=== PATIENT | male | born 1965 | race African-American/Black ===

== ENCOUNTER → 2017-01-28 | Outpatient (CLI) | payer OTHER ==
[~2017-01-28] MED LIST: BACLOFEN; BACLOFEN 10MG T10 M1 PO; BACLOFEN 10MG T10 MG PO; CLONIDINE 2; CRANBERRY400 MG PO; ENDOCET 10-3251 EACH PO; GABLOFEN10000 MCG/ INTRATHECA; HYDROMORPHONE; INTRATHECAL MED; LASIX 40 MG TAB40 M1 GT; OXYCODONE-ACET1 EAC2 PO; OXYCONTIN10 M1 PO; PERCOCET 10-321 EACH; PERCOCET 7.5-51 EACH PO; TRAZODONE HCL50 MG PO
[2017-01-28 08:41] VITALS: BP 98/62
== END | disposition home or self-care (01) ==
LOC: PAIN 06:33
DX: G80.1 Spastic diplegic cerebral palsy (principal); G89.29 Other chronic pain; F11.20 Opioid dependence, uncomplicated; Z98.890 Other specified postprocedural states

== ENCOUNTER → 2017-08-15 | Outpatient (CLI) | payer OTHER ==
--- NOTE | ~2017-08-15 | HPC ---
[facility] [address] [place] [address] PAIN MANAGEMENT CONSULTATION Name: ROSALIE ADAM Room #: REG MARK GonzalezSandiEnedina.#: [id number] Admission: 08/15/17 Attend Phys: Braydon Reyes MD Discharge: Date of : 61 Report #: [id number] THIS REPORT FOR: //name// CC: [facility] physician/PCP Braydon Reyes DATE OF SERVICE: 08/15/2017 Followup visit for management of pain related to spinal cord injury and spasticity. The patient is in the pain clinic today for renewal of his oral medications. His intrathecal pump does not require refill at today's visit. We reviewed his current dosing intrathecal and also the systemic opioids that he has been taking now for many years as a supplement to his intrathecal pump. I originally saw him when he was sent to us by Dr. Carito Tran who was originally managing his intrathecal pump. We have not accelerated his medication one bit since 2009, but he has remained on some oxycodone orally under terms of written opioid agreement. Urine drug screens and recently buccal drug screens have been performed, appropriate for his current medicines. Today, we spent a good deal of time reviewing current strategies for management of intrathecal and oral opioids. I have discussed with him the CDC guidelines once again at great length. He is just within the upper limits of the dosing requirements of 90 morphine milligram equivalents. All other aspects of his required management are being met in the clinic. He denies any side effects and once again steadfastly reports that he is carefully monitoring his medication so that it does not leave his person. PQRS is reviewed. He is hypotensive today. He is able to make daily transfers at night from his chair to his bed, but needs an real estate legal assistant in the daytime. He is a fall risk. Pain intensity is a 5-6/10. BMI is less than 20. PHYSICAL EXAMINATION: He is pleasant, alert and oriented, without signs of overmedication. He is a bit today as noted. He has use of his upper extremities, but has generalized weakness there in all muscle groups. His technology consultant is diminished. He has weakness in biceps and triceps. He has minimal spasticity below the level of his injury. His pump is in the right lower quadrant of the abdomen. IMPRESSION: 1. Spinal cord injury with a C6-C7 quadriplegia. He has a partial injury with sensory preserved causing some pain in the areas below his spinal cord injury, painful areas include his lower extremities, legs and hips as well as his buttocks. 2. Management of intrathecal infusion pump. No requirement today for refill. 3. Management of high risk medication opioid doses within the CDC guideline. [address] [address] PAIN MANAGEMENT CONSULTATION Name: ROSALIE ADAM Room #: REG MARK Velasco#: [id number] Admission: 08/15/17 Attend Phys: Braydon Reyes MD Discharge: Date of : 61 Report #: [id number] RECOMMENDATIONS: I provided him with his oxycodone 10/325, #180, one tablet q.4 hours to two tablets q.8 hours as needed for management of spasticity related pain. A buccal drug screen was performed within the last year and we will continue to monitor him carefully in that regard. <ELECTRONICALLY SIGNED> By: Braydon Reyes MD 09/11/17 1640 [id number] 41 Braydon Reyes MD /nt
[2017-08-15 10:35] VITALS: BP 82/57
== END ==
LOC: PAIN 06:45
DX: S14.157 Other incomplete lesion at C7 level of cervical spinal cord (principal); S14.15 Other incomplete lesions of cervical spinal cord; G82.54 Quadriplegia, C5-C7 incomplete; F11.90 Opioid use, unspecified, uncomplicated; Z45.1 Encounter for adjustment and management of infusion pump; X58.XXXD Exposure to other specified factors, subsequent encounter

== ENCOUNTER → 2018-02-10 | Outpatient (CLI) | payer OTHER ==
--- NOTE | ~2018-02-10 | HPC ---
[facility] [place] [address] PAIN MANAGEMENT CONSULTATION Name: ROSALIE ADAM JR Room #: REG MARK Amber.#: [id number] Admission: 02/10/18 Attend Phys: Bryadon Reyes MD Discharge: Date of : 61 Report #: [id number] THIS REPORT FOR: //name// CC: [facility] physician/PCP Braydon Reyes DATE OF SERVICE: 02/10/2018 Followup visit for chronic intractable pain and spasticity with C6-C7 quadriplegia. The patient is a high-functioning quadriplegic. He is here today for refill of his intrathecal infusion pump and renewal of oral medication, which we provide him for chronic pain. He has an incomplete injury and has some sensation below the level of his cord injury. 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 He does miss some of the social interaction at work. He complains of persistent ongoing pain in addition to some spasticity in his lower extremities, which we have been able to manage effectively with a combination of medicines in his intrathecal pump. He was on higher dose oxycodone, which I have been tapering as we have discussed the opioid crisis in the CDC guidelines. We are trying to keep patients at the lowest effective dose. He made a transition from 60 mg of oxycodone daily to 50 fairly easily and does not request additional medication today. He scores his spasticity is adequately controlled and pain intensity is 7/10. Most of his pain is in his legs at times in his buttocks. He says that he can get some relief if he elevates his feet. Pain medication clearly helps when taken on a schedule throughout the day and allows him to do many activities that one would not anticipate of a quadriplegic such as driving a car. He has a caregiver who comes in 6 days a week. MEDICATIONS: Reviewed and reconciled. He is on an opioid agreement. His functional assessment tool scoring is 50/70 and is at low risk for addiction scoring 0 on the ORT. He has had buccal drug screens performed annually and a repeat was performed today. He reports that his pain intensity is a 5. He is able to make independent transfers, but of course is a fall risk with his quadriplegia. Denies arthritis pain. PHYSICAL EXAMINATION: Pleasant, alert and oriented, he is on his wheelchair. No wounds are noted. Partial use of his upper extremities at the level of C7. Some atrophy is noted in the hands. No movement noted in the legs. Pump is in the left lower quadrant, nontender. BMI is 25.1 by report. [facility] [address] [place] [address] PAIN MANAGEMENT CONSULTATION Name: ROSALIE ADAM Room #: REG CLTyra Velasco#: [id number] Admission: 02/10/18 Attend Phys: Braydon Reyes MD Discharge: Date of : 61 Report #: [id number] IMPRESSION: 1. Spasticity related to spinal cord injury at C6-C7. Incomplete quadriplegia. 2. Management of intrathecal infusion with refill. 3. Management of high risk medications under terms of an opioid agreement. 4. Oxycodone 10 mg tablets equates to 75 morphine milligram equivalents. DESCRIPTION OF PROCEDURE: Refill and reprogram intrathecal pump. Skin was prepped with ChloraPrep and anesthetized. A 22-gauge non-coring needle advanced in the pump. Old medication removed and discarded. Pump was refilled with a combination of hydromorphone, clonidine and baclofen. Reprogramming session was performed with no change. He will receive 580 mcg of baclofen, 4.3 mg of hydromorphone and 230 mcg of clonidine daily. He is 22 months on this current pump, his second one. His TUCKER is in 11/2019. Low reservoir alarm with the new refill is 07/03/2018, we will see him back in the clinic before then. I provided medications form with release dates for 4, 8 and 12 weeks that will get him through to his next pump refill. By: 1142 [id number] Braydon Reyes MD /sara
[2018-02-10 09:38] VITALS: BP 103/55
== END | disposition home or self-care (01) ==
LOC: PAIN 06:22
DX: Z45.1 Encounter for adjustment and management of infusion pump (principal); G89.29 Other chronic pain; G80.0 Spastic quadriplegic cerebral palsy; Z79.891 Long term (current) use of opiate analgesic

== ENCOUNTER → 2018-06-09 | Outpatient (CLI) | payer OTHER ==
[~2018-06-09] VITALS: Ht 175.3 cm; Wt 77.1 kg
--- NOTE | ~2018-06-09 | HPC ---
[facility] [address] [place] [address] PAIN MANAGEMENT CONSULTATION Name: ROSALIE ADAM Room #: REG MICKI Amber.#: [id number] Admission: 06/09/18 Attend Phys: Braydon Reyes MD Discharge: Date of : 61 Report #: [id number] THIS REPORT FOR: //name// CC: [facility] physician/PCP Braydon Reyes DATE OF SERVICE: 06/09/2018 Followup visit for management of intrathecal infusion pump and medication for chronic intractable pain. The patient has the intrathecal pump providing medication for intractable pain as well as spasticity related to spinal cord injury. Pump has been very effective. Over the course of the last 10 years or so, he has been able to work and has had physical therapy to maximize his function. He has done well. His pump includes baclofen, clonidine for neuropathic pain and hydromorphone to help with other multiple aches and pains from this incomplete spinal cord injury. He is here today for refill of his pump and is due for his medications. He continues to have pain that is related to his spasticity in his lower extremities and he complains of pain as well in his mid back and upper back. His spasticity has been controlled to a reasonable degree and we will not make adjustments in any of his medication today. His medications will be reviewed and reconciled. PQRS shows that he has no significant complaints of arthritis. He has gained some weight and his BMI is now 25.1. He is wheelchair bound and would be a fall risk of course without careful transfers. He is on no blood thinners, no history of hypertension, and has been on opioid therapy with a signed agreement for over 2 years. He is considered at low risk for addiction. PHYSICAL EXAMINATION: Today, he is pleasant, alert and oriented, his increased weight is notable. He is 5 feet 9 inches, weight 170 pounds. He has partial use of his upper extremities, particularly his right, which he controls his electric wheelchair. No movement, minimal spasticity in the lower extremities today. Pump is in the left lower abdomen, nontender. IMPRESSION: 1. Spinal cord injury C6-C7 with spasticity. Incomplete quadriplegia. 2. Management of high risk medications under terms of written opioid agreement, oxycodone 10/325 mg 5 tablets daily, maximal daily dose is 75 MME. We discussed the opioid crisis in [place]. We have discussed this relatively high level of MME. 3. Refill under protocol. [address] [address] PAIN MANAGEMENT CONSULTATION Name: ROSALIE [facility] [id number] Admission: 06/09/18 Attend Phys: Braydon Reyes MD Discharge: Date of : 61 Report #: [id number] PROCEDURE: Skin was prepped with ChloraPrep and anesthetized. A 22-gauge non-coring needle advanced into the intrathecal pump. Old medication removed and discarded. Pump was refilled with a combination of hydromorphone, clonidine, and baclofen. Reprogramming session was performed. There will be no change. Daily dose will receive 580 mcg of baclofen, 4.3 mg of hydromorphone, and 230 of clonidine. Low reservoir alarm is now about 17 months. We will talk about this over the course of next year. He will have to have the pump replaced before 11/2019. Next refill is scheduled for 10/16/2018. Released today prescriptions for his oral medications, oxycodone 10, #150 were provided for today, for 8-12 weeks to get him back to his next refill appointment. By: 1230 [id number] Braydon Reyes MD /nt
[2018-06-09 11:46] VITALS: BP 122/63
== END | disposition home or self-care (01) ==
LOC: PAIN 00:16
DX: Z45.1 Encounter for adjustment and management of infusion pump (principal); G80.0 Spastic quadriplegic cerebral palsy; G89.29 Other chronic pain; Z79.891 Long term (current) use of opiate analgesic

== ENCOUNTER → 2018-09-22 | Outpatient (CLI) | payer OTHER ==
--- NOTE | ~2018-09-22 | HPC ---
[facility] [address] [place] [address] PAIN MANAGEMENT CONSULTATION Name: ROSALIE ADAM JR Room #: REG MARK Amber.#: [id number] Admission: 09/22/18 ������������������ Attend Phys: Braydon Reyes MD Discharge: ������������������ Date of : 61 Report #: [id number] THIS REPORT FOR: //name// CC: [facility] physician/PCP Braydon Reyes DATE OF SERVICE: 09/22/2018 Followup visit for chronic pain and spasticity. Management of intrathecal infusion pump and management of oral medication. The patient returns to pain clinic today for his medication. He has chronic pain related to ongoing spasticity that occurs in his back and his legs. We have managed him for many years with opioid medications under terms of written opioid agreement. We have been trying to taper his medication. I am concerned about his higher dose use of systemic opioids from we have the intrathecal infusion pump. I have also been quite dayana with him about the opioid crisis and our desire to keep all patients at the lowest effective dose as we aggressively continue to try and taper all medications on patients to see where their baseline may be. His pump including baclofen, clonidine and hydromorphone. I have told him that we will increase the hydromorphone in his intrathecal pump at next refill and in so doing, we will try and reduce his MME of oral oxycodone from 75 to 60. He is agreeable to this strategy. PQRS: He has no significant arthritic complaints. He is paralyzed, in a wheelchair, with a BMI of 25.1. He is on no blood thinners. No history of hypertension. His opioid risk tool has been completed and is on the chart. He is considered at low risk for addiction. IMPRESSION AND PLAN: 1. Spinal cord injury with spasticity, C6-C7, incomplete quadriplegia. 2. Management of high-risk medications for chronic intractable pain. Current daily dose is oxycodone 10/325 five tablets daily for an MME of 75. 3. Return to the pain clinic for refill in 1 month. ��������������������������������������������� ���������������������������������������� By: ��������������������������������������������� 1755 1325 Braydon Reyes MD /nt
[2018-09-22 09:18] VITALS: BP 97/61
--- NOTE | 2018-09-22 09:29 | NUR ---
Pain Clinic Assessment: 1. History of Osteoarthritis: Not Applicable History of Rheumatoid Arthritis: Not Applicable 2. Height: ft. in. cm. Weight: lb. oz. kg. Patient's BMI: 3. Vital Signs: BP: 97/61 Pulse: 68 Resp: 14 Temp: 02 Sat: 100 ECG Mon: 4. Pain Intensity: 8 5. Fall Risk: Dizziness: N Needs help standing or walking: Y Fallen in the last 3 months: N Fall risk comments: 6. Patient on Blood Thinner: None 7. History of Hypertension: N 8. Opioid Therapy greater than 6 weeks: Y Opiate Contract Signed: 01/19/16 9. Risk Assessment Tool Provided: O/LOW 10. Functional Assessment Tool: 54/70 11. Recreational Drug Use: Never Drug Type: Tobacco Use: Never Smoker Tobacco Type: Amount or Packs/day: How Many Years: Alcohol Use: No Frequency: Quant:
== END ==
LOC: PAIN 06:47
DX: G89.4 Chronic pain syndrome (principal); M54.5 Low back pain; Z79.899 Other long term (current) drug therapy

== ENCOUNTER → 2018-10-14 | Outpatient (CLI) | payer OTHER ==
[2018-10-14 09:09] VITALS: BP 107/65
--- NOTE | 2018-10-14 09:11 | NUR ---
Pain Clinic Assessment: 1. History of Osteoarthritis: Not Applicable History of Rheumatoid Arthritis: Not Applicable 2. Height: ft. in. cm. Weight: lb. oz. kg. Patient's BMI: 3. Vital Signs: BP: 107/65 Pulse: 59 Resp: 16 Temp: 02 Sat: 97 ECG Mon: 4. Pain Intensity: 7 5. Fall Risk: Dizziness: N Needs help standing or walking: N Fallen in the last 3 months: N Fall risk comments: 6. Patient on Blood Thinner: None 7. History of Hypertension: N 8. Opioid Therapy greater than 6 weeks: Y Opiate Contract Signed: 01/19/16 9. Risk Assessment Tool Provided: O/LOW 10. Functional Assessment Tool: 54/70 11. Recreational Drug Use: Never Drug Type: Tobacco Use: Never Smoker Tobacco Type: Amount or Packs/day: How Many Years: Alcohol Use: No Frequency: Quant:
--- NOTE | 2018-10-15 07:35 | HPC ---
[facility] [place] [address] PAIN MANAGEMENT CONSULTATION Name: ROSALIE ADAM Room #: REG [facility].#: [id number] Admission: 10/14/18 ������������������ Attend Phys: Rosanna Power Discharge: ������������������ Date of : 61 Report #: [id number] THIS REPORT FOR: //name// CC: Rosanna Power [facility] physician/PCP CHIEF COMPLAINT: Followup for chronic pain and spasticity, here for intrathecal pump refill. HISTORY OF PRESENT ILLNESS: This is a very pleasant 53-year-old gentleman who returns to the pain clinic today for refill of his intrathecal pump. He rates his pain, spasticity as 7/10. He says his pain and spasticity are worse when his feet are down, when he is sitting, he said if he elevates them and his medications are very helpful in controlling his pain. He tells me today that he does not want any changes in his pump made. He only wants to keep it as it is with no changes. ALLERGIES: No known drug allergies. CURRENT LIST OF MEDICATIONS: Oxycodone 10/325 every 4 hours, trazodone 50 mg at bedtime, baclofen 10 mg as needed and cranberry 400 mg daily. PQRS: 1. The patient does not have any osteoarthritis or rheumatoid arthritis. The patient is in a wheelchair. His vital signs are 107/65, pulse is 59, respirations 16, oxygen sat is 97%. Pain score is 7/10. Fall risk, denies dizziness. He is in a wheelchair today. He has not fallen in the last 3 months. 2. Blood thinners. He is not on any blood thinners. He does not take any medicines for hypertension. He does take opioids greater than 6 weeks; therefore, no opioid signed contract is on the chart. His risk assessment tool is low. His functional assessment is 54/70. 3. Recreational drug use, he denies. He does not smoke and he does not drink alcohol. We did check the prescription monitoring system. The patient is filling his oxycodone from Dr. Braydon Reyes, last fill was on 09/22. There is a drug screen on the chart for this patient. PHYSICAL EXAMINATION: Today, he is pleasant, alert and orientated. He has use of his upper extremities. No spasticity noted in his lower extremities today. He is in his electric wheelchair. He has an intrathecal pump that is visible in his left lower quadrant of his abdomen. IMPRESSION: 1. 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 2. Management of high-risk medications under terms of written opioid agreement, [address] [address] PAIN MANAGEMENT CONSULTATION Name: ROSALIE ADAM Room #: REG [facility] Krista#: [id number] Admission: 10/14/18 ������������������ Attend Phys: Rosanna Power Discharge: ������������������ Date of : 61 Report #: [id number] management of intrathecal infusion with refill. PROCEDURE: Skin was prepped with ChloraPrep and a 22-gauge non-coring needle was advanced into the intrathecal pump by nurse, Colby Burrell. Old medication was removed and discarded. Pump was refilled using the barbiturate method of hydromorphone, clonidine and baclofen. I reprogrammed this patient's pump with his new concentration of baclofen 2000 mcg/mL, hydromorphone 18 mg/mL and clonidine 800 mcg/mL. His current daily dose will now be baclofen 580.1 mcg per day, hydromorphone 5.22 mg per day and clonidine 232 mcg per day. He did have a bridge bolus that was programmed. The duration of this was 38 hours and 29 minutes. Pump's refill alarm date is 02/20/2019 according to the low reservoir alarm. The patient tolerated this procedure without any difficulty. PLAN: 1. I discussed this treatment option with the patient today. I explained that Dr. Reyes had ordered the increase in his hydromorphone per the last dictation, which I read to the patient stating that Dr. Reyes's plan was to increase his intrathecal pump medication and therefore decrease his oral medication of oxycodone trying to decrease his MME from 75 to 60. The patient is not agreeable with this plan. He tells me that he did not want his pump changed. The patient is being seen today with Dr. Jovany Burleson who reiterated that I read the dictation to the patient. I explained to him that since the medicine was already ordered for his refill today with his increase that we would have to refill it with his current medication. The patient is agreeable with that, but not taking those medications. Dr. Jovany Burleson agreed to give him one month of medication at its current dose, so he can return to discuss with Dr. Reyse the plan of care. Scripts given today for oxycodone , #150. An appointment made to follow up with Dr. Reyes on 11/06/2018 to discuss decreasing his oral medications per the plan discussed with the patient on September 22. 2. The patient is discharged and unhappy with the circumstances of the visit today. 3. The patient is seen in collaboration with Dr. Jovany Burleson today who was present also. ��������������������������������������������� <ELECTRONICALLY SIGNED> ���������������������������������������� By: Rosanna Power ��������������������������������������������� 10/15/18 0735 1015 29 Rosanna LAURA Power sara
== END | disposition home or self-care (01) ==
LOC: PAIN 10-13 08:47
DX: Z45.1 Encounter for adjustment and management of infusion pump (principal); I10 Essential (primary) hypertension; Z79.899 Other long term (current) drug therapy

== ENCOUNTER → 2018-11-06 | Outpatient (CLI) | payer OTHER ==
--- NOTE | ~2018-11-06 | HPC ---
[facility] [address] [place] [address] PAIN MANAGEMENT CONSULTATION Name: ROSALIE ADAM JR Room #: REG [facility].#: [id number] Admission: 11/06/18 ������������������ Attend Phys: Braydon Reyes MD Discharge: ������������������ Date of : 61 Report #: [id number] THIS REPORT FOR: //name// CC: [facility] physician/PCP Braydon Reyes DATE OF SERVICE: 11/06/2018 Followup visit for chronic intractable pain and spasticity. The patient returns to the pain clinic today in followup. We intended to continue tapering his oxycodone 10/325. We have made a move from 60 mg to 50 mg, which was performed reasonably well. I discussed dropping him further to 4 tablets as we had increased his hydromorphone in the intrathecal pump. He was quite resistant to dropping his medication. He complained bitterly that we were trying to make his pain worse and that he had been doing well on a previous regimen. We discussed our goal of trying to taper all patients to the lowest effective dose. It is not our intent to worsen his pain. We are cautiously, however, trying to make best use of his intrathecal pump. We understand that the intrathecal opioids have great potency and many patients are able to get by without higher dose opioids. On PQRS review, he is 5 feet 9 inches, BMI is around 20. Blood pressure is 89/56, heart rate 60, respirations 16. He is wheelchair bound and not a fall risk as transfers were accomplished by others. He is on no blood thinners. No history of hypertension. He is on an opioid agreement, which was signed in 2016. We reviewed it today. He has completed an opioid risk tool, which is low for any sort of addiction concerns. He scores 0. This functional assessment score is 54/70, in part increased by his spinal cord injury and lack of mobility. He denies use of tobacco at this time and alcohol. He has some joint pain and arthropathy consistent with osteoarthritis. IMPRESSION: 1. Spinal cord injury at C6-C7 with spasticity and incomplete quadriplegia. 2. Management of high-risk medications under opioid agreement. PLAN: I renewed his oxycodone for the time being , 150 tablets per month. Further reductions in pain medication may need to take place at some point in time. He understands that it is unpredictable for practitioners at this time determining what course the regulatory bodies will take and limiting opioids to patients with chronic intractable pain. He is aware that at some point in time, he may have to make some more dramatic adjustments in his daily opioids, but for [address] [address] PAIN MANAGEMENT CONSULTATION Name: ROSALIE ADAM Room #: REG MARK Velasco#: [id number] Admission: 11/06/18 ������������������ Attend Phys: Braydon Reyes MD Discharge: ������������������ Date of : 61 Report #: [id number] the moment, we will allow him the comfort that he recognizes and we will avoid adjusting his dose. ��������������������������������������������� ���������������������������������������� By: ��������������������������������������������� 1719 0910 Braydon Reyes MD /sara
[2018-11-06 13:10] VITALS: BP 89/56
--- NOTE | 2018-11-06 13:12 | NUR ---
Pain Clinic Assessment: 1. History of Osteoarthritis: Not Applicable History of Rheumatoid Arthritis: Not Applicable 2. Height: 5 ft. 9 in. 175.3 cm. Weight: lb. oz. kg. Patient's BMI: 3. Vital Signs: BP: 89/56 Pulse: 60 Resp: 16 Temp: 02 Sat: 96 ECG Mon: 4. Pain Intensity: 7 5. Fall Risk: Dizziness: N Needs help standing or walking: N Fallen in the last 3 months: N Fall risk comments: 6. Patient on Blood Thinner: None 7. History of Hypertension: N 8. Opioid Therapy greater than 6 weeks: Y Opiate Contract Signed: 01/19/16 9. Risk Assessment Tool Provided: O/LOW 10. Functional Assessment Tool: 54/70 11. Recreational Drug Use: Never Drug Type: Tobacco Use: Never Smoker Tobacco Type: Amount or Packs/day: How Many Years: Alcohol Use: No Frequency: Quant:
== END ==
LOC: PAIN 07:13
DX: S14.107D Unspecified injury at C7 level of cervical spinal cord, subsequent encounter (principal); G82.50 Quadriplegia, unspecified; Z79.899 Other long term (current) drug therapy; Z79.891 Long term (current) use of opiate analgesic; X58.XXXD Exposure to other specified factors, subsequent encounter

== ENCOUNTER → 2019-02-02 | Outpatient (CLI) | payer OTHER ==
[~2019-02-02] MED LIST changes: +XANAX1 MG PO
[2019-02-02 09:55] VITALS: BP 102/68
--- NOTE | 2019-02-02 09:57 | NUR ---
Pain Clinic Assessment: 1. History of Osteoarthritis: Not Applicable History of Rheumatoid Arthritis: Not Applicable 2. Height: 5 ft. 8 in. 172.7 cm. Weight: lb. oz. kg. Patient's BMI: 3. Vital Signs: BP: 102/68 Pulse: 60 Resp: 18 Temp: 02 Sat: 100 ECG Mon: 4. Pain Intensity: 8 5. Fall Risk: Dizziness: N Needs help standing or walking: N Fallen in the last 3 months: N Fall risk comments: 6. Patient on Blood Thinner: None 7. History of Hypertension: N 8. Opioid Therapy greater than 6 weeks: Y Opiate Contract Signed: 01/19/16 9. Risk Assessment Tool Provided: O/LOW 10. Functional Assessment Tool: 54/70 11. Recreational Drug Use: Never Drug Type: Tobacco Use: Never Smoker Tobacco Type: Amount or Packs/day: How Many Years: Alcohol Use: No Frequency: Quant:
--- NOTE | 2019-02-03 13:00 | HPC ---
[facility] [place] [address] PAIN MANAGEMENT CONSULTATION Name: ROSALIE ADAM Room #: REG [facility]..#: [id number] Admission: 02/02/19 ������������������ Attend Phys: Rosanna Power Discharge: ������������������ Date of : 61 Report #: [id number] THIS REPORT FOR: //name// CC: Rosanna Power [facility] physician/PCP Braydon Reyes DATE OF SERVICE: 02/02/2019 CHIEF COMPLAINT: Chronic intractable pain and spasticity. HISTORY OF PRESENT ILLNESS: This is a 53-year-old gentleman who returns to the pain clinic today for refill of his medications that he uses for his chronic pain and spasticity. He tells me today that his pain score is 8/10. He is having a good day he tells me. He tells me that most of his pain is located in his bilateral legs and feet as well as his buttocks. It is a throbbing pain, mostly when his feet are down, so he tries to elevate his feet and his mechanical wheelchair at all times. He does also get relief from his pain intrathecal pump. The patient denies any problems with constipation today. He is here for his medication refill. ALLERGIES: No known drug allergies. CURRENT LIST OF MEDICATIONS: Oxycodone 10/325 every 4 hours p.r.n., trazodone 50-100 mg at bedtime, baclofen 10 mg p.r.n., cranberry 400 mg daily and Xanax 1 mg t.i.d. PQRS: 1. He denies any rheumatoid arthritis or osteoarthritis. The patient is in a wheelchair. He is 5 feet 8 inches, no weight today. Vital signs: Blood pressure 102/68, pulse is 60, respirations 18, oxygen sat is 100. 2. Pain score is 8/10. 3. Denies dizziness. He is in a wheelchair, does not walk. He has not fallen. The patient is not on any blood thinners or medicines for hypertension. 4. Opioid therapy is greater than 6 weeks; therefore, an opioid signed contract is on the chart. His risk assessment tool is low. Functional assessment is 54/70. 5. Recreational drug use, he denies. He is not a smoker and does not drink alcohol. We did check the prescription monitoring system. The patient is due to fill his medications today. He has been filling them in a timely fashion. PHYSICAL EXAMINATION: GENERAL: This is a pleasant, alert, and orientated gentleman, placing his pain score at 8/[address] [address] PAIN MANAGEMENT CONSULTATION Name: ROSALIE ADAM Room #: REG [facility]#: [id number] Admission: 02/02/19 ������������������ Attend Phys: Rosanna Power Discharge: ������������������ Date of : 61 Report #: [id number] HEENT: Normocephalic, atraumatic. Extraocular eye muscles are intact. Mucous membranes are moist. MUSCULOSKELETAL: The patient is in an electric wheelchair today. No spasticity noted in his lower extremities. His intrathecal pump is visible in the left lower quadrant of his abdomen. IMPRESSION: 1. 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 2. Management of high-risk medications under terms of written opioid agreement. We reviewed the fact that opiate medications are being used to provide analgesia adequate to support activities of daily living, not attempting to achieve a specific pain score on the 0-10 Visual Analog Scale. The current opiate medications are providing sufficient analgesia to allow the patient to participate in activities of daily living. The patient is not exhibiting any aberrant behavior suggestive of drug diversion. The patient is not having any adverse reactions to medications. The patient is not suffering from daytime somnolence or mental acuity changes. The patient is managing opiate-induced constipation with appropriate meud-kzj-ofyiswu agents and dietary considerations. The patient was counseled on concern for caution with operating a motor vehicle while using opiate medications. A physical exam was performed and the patient's functional status was evaluated. All patients with back pain were advised against the bed rest greater than 4 days and were advised to return to normal activities. Pain score assessment was noted and the treatment plan was reviewed with the patient. All current medications, both prescribed and OTC were reviewed and reconciled on the electronic medical record. Tobacco screening was accomplished and smoking cessation was advised when indicated. BMI was noted and diet/exercise modification was recommended for all patients following outside normal parameters. I reviewed with the patient today their responsibilities to safeguard prescription medications, reviewed their responsibility to utilize medications only as prescribed by the physician. They are to seek and receive pain medications only from 1 physician group ( [facility]). They are to use 1 pharmacy and keep the clinic informed if they change pharmacies. Their responsibilities include making followup visits in a timely fashion and to avoid abrupt discontinuation of medication usage. Their responsibilities further include bringing their medications (bottles from the pharmacy with residual pills) to the visit for possible confirmation of pill counts and the patient understands it is their responsibility to submit to random drug screens to ensure both that the medications prescribed are present, and that no other controlled substances are present. All prescriptions provided today were generated electronically. [address] [address] PAIN MANAGEMENT CONSULTATION Name: ROSALIE ADAM JR Room #: REG [facility]#: [id number] Admission: 02/02/19 ������������������ Attend Phys: Rosanna Power Discharge: ������������������ Date of : 61 Report #: [id number] PLAN: 1. We discussed treatment options with the patient today. We renewed his oxycodone at , #150 for today, 4-week and 8-week release. 2. Script given for trazodone 50 mg, #60. The patient takes 1-2 tablets as needed at bedtime. Refills of this medication were also given. 3. The patient has appointment for his intrathecal pump refill for 02/[address] Reyes did see the patient today in collaborated care. ��������������������������������������������� <ELECTRONICALLY SIGNED> ���������������������������������������� By: Rosanna Power ��������������������������������������������� 02/03/19 1300 1038 1250 Rosanna Power /nt
== END ==
LOC: PAIN 06:50
DX: S14.106A Unspecified injury at C6 level of cervical spinal cord, initial encounter (principal); G82.54 Quadriplegia, C5-C7 incomplete; G89.4 Chronic pain syndrome; R25.2 Cramp and spasm; Z79.891 Long term (current) use of opiate analgesic; Z79.899 Other long term (current) drug therapy; X58.XXXA Exposure to other specified factors, initial encounter; Y93.89 Activity, other specified; Y92.89 Other specified places as the place of occurrence of the external cause; Y99.8 Other external cause status

== ENCOUNTER → 2019-02-19 | Outpatient (CLI) | payer OTHER ==
[2019-02-19 10:37] VITALS: BP 107/62
--- NOTE | 2019-02-19 10:51 | NUR ---
Pain Clinic Assessment: 1. History of Osteoarthritis: Not Applicable History of Rheumatoid Arthritis: Not Applicable 2. Height: 5 ft. 8 in. 172.7 cm. Weight: lb. oz. kg. Patient's BMI: 3. Vital Signs: BP: 107/62 Pulse: 61 Resp: 14 Temp: 02 Sat: 100 ECG Mon: 4. Pain Intensity: 7 5. Fall Risk: Dizziness: N Needs help standing or walking: Y Fallen in the last 3 months: N Fall risk comments: 6. Patient on Blood Thinner: None 7. History of Hypertension: N 8. Opioid Therapy greater than 6 weeks: Y Opiate Contract Signed: 01/19/16 9. Risk Assessment Tool Provided: O/LOW 10. Functional Assessment Tool: 54/70 11. Recreational Drug Use: Never Drug Type: Tobacco Use: Never Smoker Tobacco Type: Amount or Packs/day: How Many Years: Alcohol Use: No Frequency: Quant:
--- NOTE | 2019-02-26 16:33 | HPC ---
[facility] [place] [address] [place] [address] PAIN MANAGEMENT CONSULTATION Name: ROSALIE ADAM JR Room #: REG [facility].#: [id number] Admission: 02/19/19 Attend Phys: Braydon Reyes MD Discharge: Date of : 61 Report #: [id number] THIS REPORT FOR: //name// CC: [facility] physician/PCP Braydon Reyes DATE OF SERVICE: 02/19/2019 Followup visit for chronic pain and spasticity with spinal cord injury C6-C7, incomplete quadriplegia. The patient returns to pain clinic today for refill of his intrathecal infusion pump. He most recently saw nurse practitioner, Rosanna Power who renewed his medications on 02/02/2019. We discussed the importance of safeguarding his medications as we have at each visit. PQRS review is completed. Once again as before he denies osteoarthritis. Pain score is 8/10. Denies dizziness. He remains in a wheelchair and does not walk. He is on an opioid agreement. Denies recreational drug use. Denies use of tobacco and alcohol. PHYSICAL EXAMINATION: GENERAL: Pleasant, alert, well groomed. VITAL SIGNS: Blood pressure 107/62, heart rate 61, respirations 14. No signs of overmedication, depression or anxiety. IMPRESSION: Spinal cord injury C6-C7 with spasticity and incomplete quadriplegia. PROCEDURE: Refill and reprogramming of intrathecal infusion pump. Skin was prepped with ChloraPrep and 22-gauge non-coring needle advanced in the pump. Old medication removed and discarded per protocol. Pump was refilled with baclofen, clonidine and hydromorphone. Reprogramming session was performed without change. Daily dose will be as follows: Baclofen 580 mcg, hydromorphone 5.2 mg, clonidine 232 mcg. He will need a pump before 12/2019, his battery life is 11 months. His next refill is scheduled for 06/28/2019. We will discuss pump replacement at that time. <ELECTRONICALLY SIGNED> By: Braydon Reyes MD 02/26/19 1633 1812 0045 Braydon Reyes MD /nt
== END | disposition home or self-care (01) ==
LOC: PAIN 06:51
DX: Z45.1 Encounter for adjustment and management of infusion pump (principal); G89.29 Other chronic pain; G80.0 Spastic quadriplegic cerebral palsy; Z87.898 Personal history of other specified conditions; Z79.899 Other long term (current) drug therapy; Z79.891 Long term (current) use of opiate analgesic

== ENCOUNTER → 2019-04-20 | Outpatient (CLI) | payer OTHER ==
[2019-04-20 09:00] VITALS: BP 99/70
--- NOTE | 2019-04-20 09:18 | NUR ---
Pain Clinic Assessment: 1. History of Osteoarthritis: DENIES History of Rheumatoid Arthritis: DENIES 2. Height: ft. in. cm. Weight: lb. oz. kg. Patient's BMI: 3. Vital Signs: BP: 99/70 Pulse: 61 Resp: 14 Temp: 02 Sat: 100 ECG Mon: 4. Pain Intensity: 7 5. Fall Risk: Dizziness: N Needs help standing or walking: Y Fallen in the last 3 months: N Fall risk comments: 6. Patient on Blood Thinner: None 7. History of Hypertension: N 8. Opioid Therapy greater than 6 weeks: Y Opiate Contract Signed: 01/19/16 9. Risk Assessment Tool Provided: O/LOW 10. Functional Assessment Tool: (was 52) 11. Recreational Drug Use: Never Drug Type: Tobacco Use: Never Smoker Tobacco Type: Amount or Packs/day: How Many Years: Alcohol Use: Yes Frequency: Weekly Quant: BEER WITH [employer]
--- NOTE | 2019-04-23 16:52 | HPC ---
[facility] [address] [address] PAIN MANAGEMENT CONSULTATION Name: ROSALIE ADAM JR Room #: REG [facility].#: [id number] Admission: 04/20/19 Attend Phys: Braydon Reyes MD Discharge: Date of : 61 Report #: [id number] THIS REPORT FOR: //name// CC: [facility] physician/PCP Braydon Reyes DATE OF SERVICE: 04/20/2019 Followup visit for chronic pain and spasticity. Spinal cord injury C6-C7 with incomplete quadriplegia. This is a followup visit for the patient for his medication. He is under written opioid agreement. He is allowed to take oxycodone about every 4-6 hours daily. With these restrictions, he has provided 150 oxycodone 10/325 mg tablets. He reports that he is extremely cautious with his medications safeguarding them to ensure that they do not fall into the hands of others. He has had opioid screen within the last 18 months and there were no unexpected findings. I did review the prescription drug monitoring information. It appears that he is filling his prescriptions at about 25 days. He reports that on some days, he takes 6 tablets. We have discussed his limit of MME at 90 and I want him to work diligently to try and keep himself within that range. These are arbitrary numbers established by the CDC guideline and they are becoming consistent with policy. He understands that there are concerns about the use of opioids for chronic intractable pain. For the most part; however, he is grateful that the medication is there allows him pain relief and allows him to be more active and functional. He is able to exercise and do things with medication that he could not do without. He is wheelchair bound, but is independent driving his own car. He worked up until just a couple of years ago. PQRS REVIEW: 1. He denies history of osteoarthritis. 2. BMI was estimated around 20. He did not get out of his wheelchair today. We had no ability to weigh him otherwise. 3. Vital signs: Blood pressure 90/70, heart rate 61, respirations 14, O2 sat 100. 4. Pain intensity. He reports a 7/10 even with medication. 5. Fall risk. He needs help in standing and walking, but he has been careful with transfers and there have been no falls. 6. No blood thinners. 7. Denies history of hypertension. In fact he is generally a bit hypotensive as a norm. 8. He is on an opioid agreement signed in 2016 and understands the terms of that agreement. 9. He has completed an opioid risk tool scoring 0 for addiction. [address] [address] PAIN MANAGEMENT CONSULTATION Name: ROSALIE ADAM Room #: REG [facility]#: [id number] Admission: 04/20/19 Attend Phys: Braydon Reyes MD Discharge: Date of : 61 Report #: [id number] 10. Functional assessment score is 24, previously as high as 50, so he seems like he is doing better managing with his pain. 11. He denies use of tobacco, but continues to drink alcohol in a social setting. He was cautioned about the use of opioids and alcohol in conjunction. PHYSICAL EXAMINATION: VITAL SIGNS: As noted above. GENERAL: He is pleasant, alert and oriented, without signs of overmedication, depression or anxiety. CHEST: Clear. CARDIAC: Rhythm is regular. MUSCULOSKELETAL: No spasticity is noted in the lower extremities today. Intrathecal pump is in the left lower quadrant, his abdomen nontender. He has weakness throughout his upper extremities related to his cervical spinal cord injury. IMPRESSION: 1. Spasticity and incomplete quadriplegia due to spinal cord injury C6-C7. 2. Management of high risk medications under terms of written opioid agreement. RECOMMENDATIONS: Medications renewed under terms of our agreement again long discussion about his responsibilities in safeguarding his medications. Continue to see him at 3-month intervals. This is a longstanding patient. I have given him the options of transitioning off of oxycodone if he ever feels that the medication is causing problems. I believe there will be a point in time when Suboxone will be available for medication-assisted treatment even for those who I do not believe taking the medications inappropriately or as adequate. For now, he will continue with his current medicines. <ELECTRONICALLY SIGNED> By: Braydon Reyes MD 04/23/19 1652 1010 0022 Braydon Reyes MD /nt
== END ==
LOC: PAIN 06:30
DX: G82.54 Quadriplegia, C5-C7 incomplete (principal); R25.2 Cramp and spasm; Z79.891 Long term (current) use of opiate analgesic

== ENCOUNTER → 2019-06-29 | Outpatient (CLI) | payer OTHER ==
--- NOTE | ~2019-06-29 | HPC ---
[facility] [address] [place] [address] PAIN MANAGEMENT CONSULTATION Name: ROSALIE ADAM [id number] Admission: 06/29/19 Attend Phys: Braydon Reyes MD Discharge: Date of : 61 Report #: [id number] THIS REPORT FOR: //name// CC: [facility] physician/PCP Braydon Reyes DATE OF SERVICE: 06/29/2019 Followup visit for chronic pain and spasticity secondary to spinal cord injury, C6-C7, with incomplete quadriplegia. The patient returns to pain clinic today in a wheelchair. I continue to manage his intrathecal pump and I have provided him with reducing dose of oxycodone over the last couple of years. He has been on an opioid agreement in our clinic since his initiation in 2009 to our clinic. At that time, he was already on breakthrough oxycodone and I continued it. For many years, he was on 180 tablets. I have reduced him within the last year and plan to make another reduction, either in milligrams of oxycodone or in number of tablets; he takes 5 tablets a day now. I have reviewed his medications on the prescription drug monitoring program, and there are no unexpected entries. He fills at 4-week intervals and takes his medications, he says, on a daily schedule to keep his level steady. His MME at 5 tablets is 75. He is also on a benzodiazepine. I do not prescribe it. The alprazolam is taken 3 times daily to help with spasticity and anxiety. He is quite tolerant of this combination, has shown no overdose, nor has he been hospitalized or in the Emergency Room for medications. We will continue them with efforts to continue tapering to the lowest effective dose. PQRS REVIEW TODAY: 1. He denies osteoarthritis. 2. BMI is not listed due to wheelchair. We did not take him out to weigh him. He appears to be of normal weight and height. I would estimate his BMI to be in the low 20s. 3. Blood pressure 105/70, heart rate 56, respirations 14. 4. He scores his pain despite medications and both pump and oral at 8/10. 5. He denies dizziness. He needs help with transfers, but can transfer some independently. 6. He is on no blood thinners. 7. No history of hypertension. 8. He is on an opioid agreement, the terms of which have been reviewed on multiple occasions. 9. He has completed an opioid risk tool and that scores 0 suggesting that his likelihood of addiction is quite low. [address] [address] PAIN MANAGEMENT CONSULTATION Name: ROSALIE ADAM Room #: REG [facility].#: [id number] Admission: 06/29/19 Attend Phys: Braydon Reyes MD Discharge: Date of : 61 Report #: [id number] 10. Functional assessment score is 24/70. He has previously listed numbers in the range of 54. He seems to be doing better at least by his report. 11. He denies use of tobacco or alcohol or illicit drugs, including marijuana. PHYSICAL EXAMINATION: VITAL SIGNS: As noted. GENERAL: He is very pleasant, alert and oriented. Pump is in the right lower quadrant, nontender. DIAGNOSES: 1. Chronic intractable pain with spasticity and quadriplegia. 2. Management of high-risk medications under terms of written agreement. 3. Management of intrathecal infusion pump with refill and reprogramming. I refilled his intrathecal pump today. The nurses perform the task under my direction. PROCEDURE: The skin was prepped with ChloraPrep and anesthetized. A 22-gauge non-coring needle advanced in the pump. Old medication removed and discarded. Pump was refilled with baclofen, clonidine and hydromorphone combination and then reprogramming session performed. There were no changes. His next refill is scheduled for 11/05/2019. His right low reservoir alarm had triggered today, his refill date, and we reset it today in the office and had to reprogram the pump. Followup visit scheduled as needed. Medications were ordered. By: [id number] 0053 Braydon Reyes MD /nt
[2019-06-29 11:11] VITALS: BP 105/70
--- NOTE | 2019-06-29 11:28 | NUR ---
Pain Clinic Assessment: 1. History of Osteoarthritis: DENIES History of Rheumatoid Arthritis: DENIES 2. Height: ft. in. cm. Weight: lb. oz. kg. Patient's BMI: 3. Vital Signs: BP: 105/70 Pulse: 56 Resp: 14 Temp: 02 Sat: 99 ECG Mon: 4. Pain Intensity: 8 5. Fall Risk: Dizziness: N Needs help standing or walking: Y Fallen in the last 3 months: N Fall risk comments: 6. Patient on Blood Thinner: None 7. History of Hypertension: N 8. Opioid Therapy greater than 6 weeks: Y Opiate Contract Signed: 01/19/16 9. Risk Assessment Tool Provided: O/ROSA ELENA 10. Functional Assessment Tool: (was 52) 11. Recreational Drug Use: Never Drug Type: Tobacco Use: Never Smoker Tobacco Type: Amount or Packs/day: How Many Years: Alcohol Use: No Frequency: Quant:
== END | disposition home or self-care (01) ==
LOC: PAIN 10:54
DX: Z45.1 Encounter for adjustment and management of infusion pump (principal); G89.29 Other chronic pain; G80.0 Spastic quadriplegic cerebral palsy; Z98.890 Other specified postprocedural states; Z79.899 Other long term (current) drug therapy; Z79.891 Long term (current) use of opiate analgesic

== ENCOUNTER → 2019-10-01 | Outpatient (CLI) | payer OTHER ==
[~2019-10-01] VITALS: Ht 172.7 cm; Wt 74.8 kg
--- NOTE | ~2019-10-01 | HPC ---
[facility] [address] [place] [address] PAIN MANAGEMENT CONSULTATION Name: ROSALIE ADAM JR [facility] [id number] Admission: 10/01/19 Attend Phys: Braydon Reyes MD Discharge: Date of : 61 Report #: [id number] THIS REPORT FOR: cc: [facility] - No family physician/PCP [facility] - No family physician/PCP Braydon Reyes MD ~ CC: [facility] physician/PCP Braydon Reyes DATE OF SERVICE: 10/01/2019 Followup visit for chronic pain, spasticity and management of high risk medications. The patient is seen today for his medication management. I provided him in addition to intrathecal medications oral hydrocodone, which has been stable for an access for 5 years. He is wheelchair bound. He has incomplete spinal cord injury and has found best control of his pain with the intrathecal medicines and I have allowed him to use of oxycodone 10/325 five tablets daily. His morphine milligram equivalency is 75. He uses medication on a regular schedule and finds it as he uses it supplements to his medication well. He denies any significant side effects from his medicine and carefully safeguards it. We confirmed his use with the prescription drug monitoring program and there have been no unexpected entries. He is also provided alprazolam by Dr. Villalobos. He has found this to be helpful as well. PQRS is negative for osteoarthritis. His BMI is 25.1. Blood pressure 107/69, heart rate 60. Pain intensity 7-8/10. He is a fall risk and needs to use great caution in transferring. Denies use of blood thinners. He has signed an opioid agreement. He is at low risk for addiction by the ORT scoring 0. Does not use tobacco or alcohol. PHYSICAL EXAMINATION: Pleasant, alert and oriented, without any obvious anxiety, depression, or signs of overmedication. Vital signs are as noted. He has no movement below the level of his spinal cord injury in the mid thoracic region. He has incomplete sensation. IMPRESSION: 1. Chronic intractable pain with spasticity and quadriplegia. 2. Management of high risk medications under terms of written agreement. 3. Management of intrathecal infusion pump. He does not need refill today. [facility] [address] [place] [address] PAIN MANAGEMENT CONSULTATION Name: ROSALIE ADAM Room #: REG [facility]#: [id number] Admission: 10/01/19 Attend Phys: Braydon Reyes MD Discharge: Date of : 61 Report #: [id number] His oral medications were sent electronically. I plan to see him back in the pain clinic for pump refill in 1 month. By: 1220 [id number] Braydon Reyes MD /nt
[2019-10-01 09:38] VITALS: BP 107/69
--- NOTE | 2019-10-01 09:51 | NUR ---
Pain Clinic Assessment: 1. History of Osteoarthritis: DENIES History of Rheumatoid Arthritis: DENIES 2. Height: 5 ft. 8 in. 172.7 cm. Weight: 165.0 lb. oz. 74.844 kg. Patient's BMI: 25.1 3. Vital Signs: BP: 107/69 Pulse: 60 Resp: 16 Temp: 02 Sat: 100 ECG Mon: 4. Pain Intensity: 7-8 5. Fall Risk: Dizziness: N Needs help standing or walking: Y Fallen in the last 3 months: N Fall risk comments: 6. Patient on Blood Thinner: None 7. History of Hypertension: N 8. Opioid Therapy greater than 6 weeks: Y Opiate Contract Signed: 01/19/16 9. Risk Assessment Tool Provided: O/LOW 10. Functional Assessment Tool: 11. Recreational Drug Use: Never Drug Type: Tobacco Use: Never Smoker Tobacco Type: Amount or Packs/day: How Many Years: Alcohol Use: No Frequency: Quant:
== END ==
LOC: PAIN 06:43
DX: G89.29 Other chronic pain (principal); G89.4 Chronic pain syndrome

== ENCOUNTER → 2019-11-02 | Outpatient (CLI) | payer OTHER ==
--- NOTE | ~2019-11-02 | HPC ---
[facility] [place] [address] PAIN MANAGEMENT CONSULTATION Name: ROSALIE ADAM JR Room #: REG MARK Clark.#: [id number] Admission: 11/02/19 Attend Phys: Braydon Reyes MD Discharge: Date of : 61 Report #: [id number] THIS REPORT FOR: cc: AMY - No family physician/PCP AMY - No family physician/PCP Braydon Reyes MD ~ CC: [facility] physician/PCP Braydon Reyes DATE OF SERVICE: 11/02/2019 Followup visit for the patient for refill of his intrathecal infusion pump. His pump infuses a combination of baclofen, clonidine and hydromorphone. His TUCKER is 2 months. We scheduled him today with Dr. Blue for pump replacement sometime within the next 30 days. The patient reports that his pain management is typical. Although, he always scores highly on the visual analog scale. His pain intensity is 7-8/10. He is managing fine through the COVID-19 quarantine. His life not much changed. His girlfriend and other family members do shopping for him. He does not get out of his house much. PQRS assessment is negative for osteoarthritis. BMI is stable at 25.1. Blood pressure 107/69, heart rate 60, respirations 16, O2 sat 100%. He is unable to stand, but has not fallen nor has he had any incidents regarding transfer from his wheelchair. He is on no blood thinners, no history of hypertension. He does have an opioid agreement for oral medicines that are provided for him dating back nearly 10 years, his dose is stable. His MME is 75. Medication is oxycodone 10/325 one tablet to 2 tablets t.i.d., maximum 5 tablets per day reduction from maximum dose of 6. Functional assessment score is 24/60 not bad for a gentleman in a wheelchair. He denies use of tobacco or alcohol. PHYSICAL EXAMINATION: He is pleasant, alert and oriented, does not show any signs of depression or anxiety. Does not show any signs of overmedication. He has a suprapubic catheter. He is able to control his electric wheelchair with the use of his arms, but he has significant weakness. Spinal cord injury at C6-C7. IMPRESSION: 1. Quadriplegia with spasticity. 2. Management of intrathecal infusion pump with refill and reprogramming session. 3. Management of high risk medications under terms of written agreement. Medications were recently prescribed on a separate visit. [address] [address] PAIN MANAGEMENT CONSULTATION Name: ROSALIE ADAM [id number] Admission: 11/02/19 Attend Phys: Braydon Reyes MD Discharge: Date of : 61 Report #: [id number] PROCEDURE: Refill and reprogramming. Skin was prepped with ChloraPrep and a 22-gauge non-coring needle advanced into the intrathecal pump. Old medication removed and discarded. Pump was refilled with 39.5 mL of solution containing baclofen, hydromorphone and clonidine. Reprogramming session was performed. He was informed about his TUCKER of 2 months. After pump refill and checking of his programming information, a copy was given to the patient. I then placed a call to Dr. Carlos Blue's office and spoke with advanced practitioner, Gale Skelton. She is making arrangements for him to be scheduled for pump replacement within the next month. Followup as needed. By: [id number] Braydon Reyes MD /nt
--- NOTE | 2019-11-02 11:26 | NUR ---
Pain Clinic Assessment: 1. History of Osteoarthritis: DENIES History of Rheumatoid Arthritis: DENIES 2. Height: ft. in. cm. Weight: lb. oz. kg. Patient's BMI: 3. Vital Signs: BP: Pulse: 74 Resp: 16 Temp: 02 Sat: 100 ECG Mon: 4. Pain Intensity: 7 5. Fall Risk: Dizziness: N Needs help standing or walking: Y Fallen in the last 3 months: N Fall risk comments: 6. Patient on Blood Thinner: None 7. History of Hypertension: N 8. Opioid Therapy greater than 6 weeks: Y Opiate Contract Signed: 01/19/16 9. Risk Assessment Tool Provided: O/LOW 10. Functional Assessment Tool: 11. Recreational Drug Use: Never Drug Type: Tobacco Use: Never Smoker Tobacco Type: Amount or Packs/day: How Many Years: Alcohol Use: No Frequency: Quant:
[2019-11-02 11:57] VITALS: BP 98/60
== END | disposition home or self-care (01) ==
LOC: PAIN 06:48
DX: Z45.1 Encounter for adjustment and management of infusion pump (principal); G80.0 Spastic quadriplegic cerebral palsy; G89.29 Other chronic pain; Z98.890 Other specified postprocedural states; Z79.899 Other long term (current) drug therapy

== ENCOUNTER → 2020-02-04 | Outpatient (CLI) | payer OTHER ==
[~2020-02-04] VITALS: Ht 175.3 cm; Wt 72.6 kg
[2020-02-04 10:45] VITALS: BP 89/49
--- NOTE | 2020-02-04 10:50 | NUR ---
Pain Clinic Assessment: 1. History of Osteoarthritis: DENIES History of Rheumatoid Arthritis: DENIES 2. Height: 5 ft. 9 in. 175.3 cm. Weight: 160.0 lb. oz. 72.576 kg. Patient's BMI: 23.6 3. Vital Signs: BP: 89/49 Pulse: 87 Resp: 16 Temp: 02 Sat: 98 ECG Mon: 4. Pain Intensity: 7-8 5. Fall Risk: Dizziness: N Needs help standing or walking: N Fallen in the last 3 months: N Fall risk comments: 6. Patient on Blood Thinner: None 7. History of Hypertension: N 8. Opioid Therapy greater than 6 weeks: Y Opiate Contract Signed: 01/19/16 9. Risk Assessment Tool Provided: O/LOW 10. Functional Assessment Tool: 11. Recreational Drug Use: Never Drug Type: Tobacco Use: Never Smoker Tobacco Type: Amount or Packs/day: How Many Years: Alcohol Use: No Frequency: Quant:
--- NOTE | 2020-02-05 07:44 | HPC ---
[facility] [address] [place] [address] PAIN MANAGEMENT CONSULTATION Name: ROSALIE ADAM Room #: REG [facility].#: [id number] Admission: 02/04/20 Attend Phys: Rosanna Power Discharge: Date of : 61 Report #: [id number] THIS REPORT FOR: cc: AMY - No family physician/PCP FAM - No family physician/PCP Rosanna Power ~ CC: Braydon Reyes MD DATE OF SERVICE: 02/04/2020 CHIEF COMPLAINT: Chronic pain and spasticity secondary to spinal cord injury at C6-C7 with incomplete quadriplegia. HISTORY OF PRESENT ILLNESS: This is a pleasant 54-year-old gentleman who returns to the pain clinic today for refill of his opioid medications prior to having his intrathecal pump filled in about a month. The patient does report pain score of 7-8 today in his feet and buttocks, his tenderness that is throbbing. It is exacerbated when his feet are dependent, as well as sitting for prolonged periods of time on an ongoing sacral wound that he has. He feels when he elevates his feet as well as taking oral medications and using his intrathecal pump for pain control that he is fairly stable. He recently had his intrathecal pump replaced in November. The site has been clean and dry. He reports no difficulty with that surgery. He has been mostly staying at home due to the COVID virus. He has gone to see some family, does wear a mask on all times and stay safe. Today, he is requesting a one month of medication until we have his pump filled. At that time, we will determine the dates for his prescriptions at that time. ALLERGIES: No known drug allergies. CURRENT LIST OF MEDICATIONS: Oxycodone 10/325 p.r.n., trazodone, alprazolam, baclofen, cranberry juice. PQRS: 1. He is negative for osteoarthritis or rheumatoid arthritis. 2. Height is 5 feet 9 inches, weight is 160, BMI is 23. 3. Vital signs; blood pressure 89/49, pulse 87, respirations 16, saturating 98%. 4. Pain score is 7-8. Fall risk, denies dizziness. He is in a wheelchair, has not fallen. He does not take any blood pressure medicines or blood thinners. His opioid therapy is greater than 6 weeks. He does have an opioid contract on the chart. Risk assessment is low. Functional assessment is 24/60. 5. Recreational drug use, he denies. He is not a smoker and does not drink alcohol. According to the prescription monitoring system, the patient is due to fill his [address] [address] PAIN MANAGEMENT CONSULTATION Name: ROSALIE BIGG Room #: REG [facility].#: [id number] Admission: 02/04/20 Attend Phys: Rosanna Power Discharge: Date of : 61 Report #: [id number] medications early next week. According to the CDC guidelines, his morphine mEq orally is 75, though he does have medications in his intrathecal pump as well. PHYSICAL EXAMINATION: GENERAL: This is alert and orientated, well-developed, well-nourished 54-year-old gentleman who does not show signs of overmedication. His pain score is 7-8/10. HEENT: Normocephalic and atraumatic. Extraocular eye muscles are intact. He is wearing a mask. MUSCULOSKELETAL: He is able to control his electric wheelchair with the use of his arms, but has decreased weakness in his bilateral arms. Spinal cord injury at C6-C7. He has a suprapubic catheter. No movement below the level of the spinal cord injury. His intrathecal pump is in his right lower quadrant that is nontender with well-healed incision. IMPRESSION: 1. Quadriplegic with spasticity. 2. Management of intrathecal infusion pump. 3. Management of high risk medications under terms of written opioid agreement. We reviewed the fact that opiate medications are being used to provide analgesia adequate to support activities of daily living, not attempting to achieve a specific pain score on the 0-10 Visual Analog Scale. The current opiate medications are providing sufficient analgesia to allow the patient to participate in activities of daily living. The patient is not exhibiting any aberrant behavior suggestive of drug diversion. The patient is not having any adverse reactions to medications. The patient is not suffering from daytime somnolence or mental acuity changes. The patient is managing opiate-induced constipation with appropriate idms-dnq-azvolqo agents and dietary considerations. The patient was counseled on concern for caution with operating a motor vehicle while using opiate medications. A physical exam was performed and the patient's functional status was evaluated. All patients with back pain were advised against the bed rest greater than 4 days and were advised to return to normal activities. Pain score assessment was noted and the treatment plan was reviewed with the patient. All current medications, both prescribed and OTC were reviewed and reconciled on the electronic medical record. Tobacco screening was accomplished and smoking cessation was advised when indicated. BMI was noted and diet/exercise modification was recommended for all patients following outside normal parameters. I reviewed with the patient today their responsibilities to safeguard prescription medications, reviewed their responsibility to utilize medications only as prescribed by the physician. They are to seek and receive pain medications only from 1 physician group ([facility]). They are to use [address] [address] PAIN MANAGEMENT CONSULTATION Name: ROSALIE ADAM Room #: REG [facility].#: [id number] Admission: 02/04/20 Attend Phys: Rosanna Power Discharge: Date of : 61 Report #: [id number] pharmacy and keep the clinic informed if they change pharmacies. Their responsibilities include making followup visits in a timely fashion and to avoid abrupt discontinuation of medication usage. Their responsibilities further include bringing their medications (bottles from the pharmacy with residual pills) to the visit for possible confirmation of pill counts and the patient understands it is their responsibility to submit to random drug screens to ensure both that the medications prescribed are present, and that no other controlled substances are present. All prescriptions provided today were generated electronically. PLAN: We discussed treatment options with the patient today. We will have Dr. Braydon Reyes send one month of his oxycodone , #150 to his pharmacy today. This will get him to his next intrathecal pump fill. I am unsure if he will be seen on 3-month intervals, we will determine that at his next appointment. At that time, we will provide him with additional prescriptions once we determine his refill date. The patient verbalizes understanding of this. Appointment made prior to his leaving today. The patient is seen today in collaboration with Dr. Braydon Reyes. <ELECTRONICALLY SIGNED> By: Rosanna Power 02/05/20 [id number] Rosanna webber
== END ==
LOC: PAIN 07:03
PROVIDERS: ATTEND Clinical Nurse Specialist Adult Health
DX: G89.29 Other chronic pain (principal); G82.54 Quadriplegia, C5-C7 incomplete; F11.20 Opioid dependence, uncomplicated; Z45.1 Encounter for adjustment and management of infusion pump; Z79.899 Other long term (current) drug therapy

== ENCOUNTER → 2020-03-03 | Outpatient (CLI) | payer OTHER ==
[~2020-03-03] MED LIST changes: +PERCOCET 10-321 EAC1 PO
--- NOTE | ~2020-03-03 | HPC ---
[facility] [address] [place] [address] PAIN MANAGEMENT CONSULTATION Name: ROSALIE ADAM JR Room #: REG MARK GonzalezSandiEnedinaSandi#: [id number] Admission: 03/03/20 Attend Phys: Braydon Reyes MD Discharge: Date of : 61 Report #: [id number] THIS REPORT FOR: cc: AMY - No family physician/PCP AMY - No family physician/PCP Braydon Reyes MD ~ CC: [facility] physician/PCP Braydon Reyes DATE OF SERVICE: 03/03/2020 Followup visit for management of intrathecal infusion pump for spasticity and chronic intractable pain. The patient is a pleasant 54-year-old who I have taken care of now for about 10 years. He has an intrathecal pump infusing a combination of baclofen, clonidine and hydromorphone for intractable pain and spasticity. He is confined to a wheelchair. He has partial use of his extremities. His medication in the intrathecal pump is adequate. I do not want to increase it any further; it is complicated with multiple medicines. I provided him hydrocodone as a breakthrough medicine at one time up to a day and we have been tapering these down at 5 per day, at this point nonetheless at 75 morphine milligram equivalents, which he tolerates well. There are no side effects reported, to carefully safeguard the medication and his urine drug screens do show that his medications are appropriate for medications provided. Prescription drug monitoring program information was reviewed before his visit and there are no unexpected entries. I will continue to provide these medications for him. It should be noted that he also takes alprazolam 1 mg 3 times daily and has done so for many years. We have found these medications positive in his urine drug screen and he does take them. He has been trying to use these less frequently. They are prescribed by Dr. Morelia Villalobos. I have talked to him about the benzodiazepine and opioid interaction. He must carefully safeguard these medications as they are dangerous combination out of his hands. He understands the risks. PHYSICAL EXAMINATION: GENERAL: He is pleasant, alert and oriented, in his wheelchair. He is wearing a mask due to COVID restrictions. CHEST: Clear. CARDIAC: Rhythm is regular. MUSCULOSKELETAL: He has weakness in his upper extremities. No movement below the level of the spinal cord injury at C6-C7 below the neck. Intrathecal pump is in the right lower quadrant, nontender with a well-healed incision. [address] [address] PAIN MANAGEMENT CONSULTATION Name: ROSALIE ADAM Room #: REG MARK Krista#: [id number] Admission: 03/03/20 Attend Phys: Braydon Reyes MD Discharge: Date of : 61 Report #: [id number] IMPRESSION: Chronic intractable pain and spasticity secondary to incomplete spinal cord injury at C6-C7. Quadriplegia. PROCEDURE: Refill and reprogramming of intrathecal infusion pump and prescribing of chronic opioid therapy per our agreement. DESCRIPTION OF PROCEDURE: Skin was prepped with ChloraPrep. A 22-gauge non-coring needle was advanced in the pump. Old medication removed and discarded. Pump was then refilled with a combination of baclofen, clonidine and hydromorphone. Reprogramming session was performed. That information is on the chart. Daily doses will be 580/5.2/232 baclofen/hydromorphone/clonidine. Followup visit planned in the pain clinic in 3 months. Medications were sent electronically. Time spent in consultation reviewing available records 20 minutes. Time spent in refilling intrathecal infusion pump 10 minutes. By: [id number] Braydon Reyes MD /nt
[2020-03-03 10:06] VITALS: BP 126/87
--- NOTE | 2020-03-03 10:14 | NUR ---
Pain Clinic Assessment: 1. History of Osteoarthritis: DENIES History of Rheumatoid Arthritis: DENIES 2. Height: ft. in. cm. Weight: lb. oz. kg. Patient's BMI: 3. Vital Signs: BP: 126/87 Pulse: 64 Resp: 16 Temp: 02 Sat: 100 ECG Mon: 4. Pain Intensity: 7 5. Fall Risk: Dizziness: N Needs help standing or walking: Y Fallen in the last 3 months: N Fall risk comments: 6. Patient on Blood Thinner: None 7. History of Hypertension: N 8. Opioid Therapy greater than 6 weeks: Y Opiate Contract Signed: 01/19/16 9. Risk Assessment Tool Provided: O/LOW 10. Functional Assessment Tool: 11. Recreational Drug Use: Never Drug Type: Tobacco Use: Never Smoker Tobacco Type: Amount or Packs/day: How Many Years: Alcohol Use: No Frequency: Quant:
== END | disposition home or self-care (01) ==
LOC: PAIN 06:50
PROVIDERS: ATTEND Anesthesiology Pain Medicine
DX: Z45.1 Encounter for adjustment and management of infusion pump (principal); G89.29 Other chronic pain; G82.50 Quadriplegia, unspecified; Z98.890 Other specified postprocedural states; Z79.899 Other long term (current) drug therapy; Z79.891 Long term (current) use of opiate analgesic

== ENCOUNTER → 2020-05-26 | Outpatient (CLI) | payer OTHER ==
--- NOTE | ~2020-05-26 | HPC ---
[facility] [place] [address] PAIN MANAGEMENT CONSULTATION Name: ROSALIE ADAM JR Room #: REG [facility]#: [id number] Admission: 05/26/20 Attend Phys: Rosanna Power Discharge: Date of : 61 Report #: [id number] THIS REPORT FOR: cc: Morelia Villalobos MD,Morelia Power,Rosanna SANCHEZ ~ CC: Morelia Power DATE OF SERVICE: 05/26/2020 CHIEF COMPLAINT: Chronic intractable pain and spasticity. HISTORY OF PRESENT ILLNESS: This is a very pleasant 54-year-old gentleman, who returns today for a refill of his medications that he used to supplement his pain as well as an intrathecal pump. The patient returns today stating his pain is a 6-7. He has been out of his oral pain pills for several days. Normally, his pain is slightly less when he is taking those medications. His pain is mostly in his bilateral feet and buttocks. He does have a sacral wound that has healed and now is having issues with a left elbow wound. He reports seeing a veterinary milk specialist at [facility] once a week and has a wound VAC on this elbow that is changed every 2 days by a home health nurse. The patient characterizes his pain as tender, throbbing pain, worse when his feet are lower or in the sitting position. He has pressure on his sacral area. He feels that the intrathecal pain pump as well as his oral medications are beneficial in helping control his pain. ALLERGIES: No known drug allergies. CURRENT LIST OF MEDICATIONS: Oxycodone 10/325 up to 5 tablets a day, trazodone 50 mg at bedtime, alprazolam, baclofen, cranberry and intrathecal pumps of hydromorphone, clonidine and baclofen. PQRS: 1. He denies any osteo or rheumatoid arthritis. 2. Height, weight is deferred. His vital signs are 111/54, pulse is 60, respirations 16, oxygen sat is 97%. 3. Pain score is 6-7. Fall risk. Denies dizziness. He does need assistance with walking and any ambulating. He is in a wheelchair and does slide into the chairs. He has not fallen in the last 3 months. The patient is not on any blood thinners medicines or blood pressure medicines. He is opioid therapy is greater than 6 weeks; therefore, an opioid signed contract is on the chart. Risk assessment is low. Functional assessment is 24/60. 4. Recreational drug use, he denies. He has never smoked and does not drink alcohol. [address] [address] PAIN MANAGEMENT CONSULTATION Name: MAIRAROSALIE BIGG Room #: REG [facility] Krista#: [id number] Admission: 05/26/20 Attend Phys: Rosanna Power Discharge: Date of : 61 Report #: [id number] According to the prescription monitoring system, the patient is able to fill his medications on Saturday. His morphine mEq according to the CDC guidelines is 75 MME. He does have intrathecal medicines as well that is not figured into this amount. PHYSICAL EXAMINATION: GENERAL: This is alert and orientated, very pleasant gentleman, who is in a wheelchair today, rating his pain score a 6-7. HEENT: Normocephalic, atraumatic. Extraocular eye muscles are intact. He is wearing a mask. MUSCULOSKELETAL: He has weakness in his upper extremities. He has a dressing on his left elbow today. This is not visualized. His wound VAC is not attached currently. He has no movement below the level of his spinal cord injury in the mid thoracic region. He has incomplete sensation of his intrathecal pump in the right lower quadrant of his abdomen. IMPRESSION: 1. Chronic intractable pain and spasticity secondary to incomplete spinal cord injury. 2. Quadriplegia. 3. Management of intrathecal infusion pump. 4. Management of high risk medications under terms of written agreement. We reviewed the fact that opiate medications are being used to provide analgesia adequate to support activities of daily living, not attempting to achieve a specific pain score on the 0-10 Visual Analog Scale. The current opiate medications are providing sufficient analgesia to allow the patient to participate in activities of daily living. The patient is not exhibiting any aberrant behavior suggestive of drug diversion. The patient is not having any adverse reactions to medications. The patient is not suffering from daytime somnolence or mental acuity changes. The patient is managing opiate-induced constipation with appropriate qhqg-dda-zzwzecl agents and dietary considerations. The patient was counseled on concern for caution with operating a motor vehicle while using opiate medications. A physical exam was performed and the patient's functional status was evaluated. All patients with back pain were advised against the bed rest greater than 4 days and were advised to return to normal activities. Pain score assessment was noted and the treatment plan was reviewed with the patient. All current medications, both prescribed and OTC were reviewed and reconciled on the electronic medical record. Tobacco screening was accomplished and smoking cessation was advised when indicated. BMI was noted and diet/exercise modification was recommended for all patients following outside normal parameters. I reviewed with the patient today their responsibilities to [address] [address] PAIN MANAGEMENT CONSULTATION Name: [facility]ALIE ADAM JR [facility] [id number] Admission: 05/26/20 Attend Phys: Rosanna Power Discharge: Date of : 61 Report #: [id number] prescription medications, reviewed their responsibility to utilize medications only as prescribed by the physician. They are to seek and receive pain medications only from 1 physician group ( [facility]). They are to use 1 pharmacy and keep the clinic informed if they change pharmacies. Their responsibilities include making followup visits in a timely fashion and to avoid abrupt discontinuation of medication usage. Their responsibilities further include bringing their medications (bottles from the pharmacy with residual pills) to the visit for possible confirmation of pill counts and the patient understands it is their responsibility to submit to random drug screens to ensure both that the medications prescribed are present, and that no other controlled substances are present. All prescriptions provided today were generated electronically. PLAN: 1. We discussed treatment options with the patient today, reminding the patient that Dr. Reyes allows him 150 tablets in a 30-day supply up to 5 tablets per day. He states some days he does require 6. I explained to him, then other days, he should take 4 tablets a day, reminding him 150 is a 30-day supply. Scripts will be sent electronically for [address] Reyes today. 2. The patient will return in June for an intrathecal pump refill. At that time, we may address offering him a prescription to fill in 8 weeks and hopefully that will allow him enough medicines to get to his next intrathecal pump refill. The patient is seen today in collaboration with Dr. Reyes. By: [id number] Rosanna Power /sara
[2020-05-26 13:46] VITALS: BP 111/54
--- NOTE | 2020-05-26 13:56 | NUR ---
Pain Clinic Assessment: 1. History of Osteoarthritis: DENIES History of Rheumatoid Arthritis: DENIES 2. Height: ft. in. cm. Weight: lb. oz. kg. Patient's BMI: 3. Vital Signs: BP: 111/54 Pulse: 60 Resp: 16 Temp: 02 Sat: 97 ECG Mon: 4. Pain Intensity: 6-7 5. Fall Risk: Dizziness: N Needs help standing or walking: Y Fallen in the last 3 months: N Fall risk comments: 6. Patient on Blood Thinner: None 7. History of Hypertension: N 8. Opioid Therapy greater than 6 weeks: Y Opiate Contract Signed: 01/19/16 9. Risk Assessment Tool Provided: O/LOW 10. Functional Assessment Tool: 11. Recreational Drug Use: Never Drug Type: Tobacco Use: Never Smoker Tobacco Type: Amount or Packs/day: How Many Years: Alcohol Use: No Frequency: Quant:
== END ==
LOC: PAIN 13:25
PROVIDERS: ATTEND Clinical Nurse Specialist Adult Health
DX: G81.10 Spastic hemiplegia affecting unspecified side (principal); G82.50 Quadriplegia, unspecified; F11.20 Opioid dependence, uncomplicated; Z79.899 Other long term (current) drug therapy

== ENCOUNTER → 2020-06-16 | Outpatient (CLI) | payer OTHER ==
[2020-06-16 10:15] VITALS: BP 116/92
--- NOTE | 2020-06-16 10:34 | NUR ---
Pain Clinic Assessment: 1. History of Osteoarthritis: DENIES History of Rheumatoid Arthritis: DENIES 2. Height: ft. in. cm. Weight: lb. oz. kg. Patient's BMI: 3. Vital Signs: BP: 116/92 Pulse: 65 Resp: 20 Temp: 02 Sat: 100 ECG Mon: 4. Pain Intensity: 10 5. Fall Risk: Dizziness: N Needs help standing or walking: Y Fallen in the last 3 months: N Fall risk comments: 6. Patient on Blood Thinner: None 7. History of Hypertension: N 8. Opioid Therapy greater than 6 weeks: Y Opiate Contract Signed: 01/19/16 9. Risk Assessment Tool Provided: O/LOW 10. Functional Assessment Tool: 53/70 11. Recreational Drug Use: Never Drug Type: Tobacco Use: Never Smoker Tobacco Type: Amount or Packs/day: How Many Years: Alcohol Use: No Frequency: Quant:
== END | disposition home or self-care (01) ==
LOC: PAIN 06:41
PROVIDERS: ATTEND Anesthesiology Pain Medicine
DX: Z45.1 Encounter for adjustment and management of infusion pump (principal); G89.29 Other chronic pain; G80.0 Spastic quadriplegic cerebral palsy; Z79.891 Long term (current) use of opiate analgesic; Z98.890 Other specified postprocedural states; Z79.899 Other long term (current) drug therapy

== ENCOUNTER → 2020-10-20 | Outpatient (CLI) | payer OTHER ==
[2020-10-20 14:51] VITALS: BP 135/103
--- NOTE | 2020-10-20 15:19 | NUR ---
Pain Clinic Assessment: 1. History of Osteoarthritis: DENIES History of Rheumatoid Arthritis: DENIES 2. Height: ft. in. cm. Weight: lb. oz. kg. Patient's BMI: 3. Vital Signs: BP: 135/103 Pulse: 60 Resp: 14 Temp: 02 Sat: 97 ECG Mon: 4. Pain Intensity: 6-7 5. Fall Risk: Dizziness: N Needs help standing or walking: Y Fallen in the last 3 months: N Fall risk comments: 6. Patient on Blood Thinner: None 7. History of Hypertension: N 8. Opioid Therapy greater than 6 weeks: Y Opiate Contract Signed: 01/19/16 9. Risk Assessment Tool Provided: O/LOW 10. Functional Assessment Tool: 53/ 11. Recreational Drug Use: Never Drug Type: Tobacco Use: Never Smoker Tobacco Type: Amount or Packs/day: How Many Years: Alcohol Use: No Frequency: Quant:
== END | disposition home or self-care (01) ==
LOC: PAIN 06:57
PROVIDERS: ATTEND Anesthesiology Pain Medicine
DX: Z45.1 Encounter for adjustment and management of infusion pump (principal); G89.29 Other chronic pain; G80.0 Spastic quadriplegic cerebral palsy; Z98.890 Other specified postprocedural states; Z79.899 Other long term (current) drug therapy

== ENCOUNTER → 2021-01-12 | Outpatient (CLI) | payer OTHER ==
[2021-01-12 11:13] VITALS: BP 131/100
--- NOTE | 2021-01-12 11:24 | NUR ---
Pain Clinic Assessment: 1. History of Osteoarthritis: DENIES History of Rheumatoid Arthritis: DENIES 2. Height: ft. in. cm. Weight: lb. oz. kg. Patient's BMI: 3. Vital Signs: BP: 131/100 Pulse: 92 Resp: 14 Temp: 02 Sat: 94 ECG Mon: 4. Pain Intensity: 7 5. Fall Risk: Dizziness: N Needs help standing or walking: Y Fallen in the last 3 months: N Fall risk comments: 6. Patient on Blood Thinner: None 7. History of Hypertension: N 8. Opioid Therapy greater than 6 weeks: Y Opiate Contract Signed: 01/19/16 9. Risk Assessment Tool Provided: O/LOW 10. Functional Assessment Tool: 11. Recreational Drug Use: Never Drug Type: Tobacco Use: Never Smoker Tobacco Type: Amount or Packs/day: How Many Years: Alcohol Use: No Frequency: Quant:
== END ==
LOC: PAIN 07:02
PROVIDERS: ATTEND Anesthesiology Pain Medicine
DX: Z76.0 Encounter for issue of repeat prescription (principal); R25.2 Cramp and spasm; G82.50 Quadriplegia, unspecified; G89.4 Chronic pain syndrome; Z79.899 Other long term (current) drug therapy; Z79.891 Long term (current) use of opiate analgesic

== ENCOUNTER → 2021-02-20 | Outpatient (CLI) | payer OTHER ==
[2021-02-20 11:27] VITALS: BP 112/77
--- NOTE | 2021-02-20 11:38 | NUR ---
Pain Clinic Assessment: 1. History of Osteoarthritis: DENIES History of Rheumatoid Arthritis: DENIES 2. Height: ft. in. cm. Weight: lb. oz. kg. Patient's BMI: 3. Vital Signs: BP: 112/77 Pulse: 60 Resp: 16 Temp: 02 Sat: 99 ECG Mon: 4. Pain Intensity: 6 5. Fall Risk: Dizziness: N Needs help standing or walking: Y Fallen in the last 3 months: N Fall risk comments: 6. Patient on Blood Thinner: None 7. History of Hypertension: N 8. Opioid Therapy greater than 6 weeks: Y Opiate Contract Signed: 01/19/16 9. Risk Assessment Tool Provided: O/LOW 10. Functional Assessment Tool: 11. Recreational Drug Use: Never Drug Type: Tobacco Use: Never Smoker Tobacco Type: Amount or Packs/day: How Many Years: Alcohol Use: No Frequency: Quant:
== END | disposition home or self-care (01) ==
LOC: PAIN 07:07
PROVIDERS: ATTEND Anesthesiology Pain Medicine
DX: Z45.1 Encounter for adjustment and management of infusion pump (principal); G80.0 Spastic quadriplegic cerebral palsy; G89.29 Other chronic pain; G62.9 Polyneuropathy, unspecified; Z79.891 Long term (current) use of opiate analgesic; Z98.890 Other specified postprocedural states; Z79.899 Other long term (current) drug therapy

== ENCOUNTER → 2021-03-23 | Outpatient (CLI) | payer OTHER ==
[~2021-03-23] MED LIST changes: +NARCAN4 MG NARES
[2021-03-23 12:48] VITALS: BP 103/53
--- NOTE | 2021-03-23 12:58 | NUR ---
Pain Clinic Assessment: 1. History of Osteoarthritis: DENIES History of Rheumatoid Arthritis: DENIES 2. Height: ft. in. cm. Weight: lb. oz. kg. Patient's BMI: 3. Vital Signs: BP: 103/53 Pulse: 65 Resp: 14 Temp: 02 Sat: 100 ECG Mon: 4. Pain Intensity: 8 5. Fall Risk: Dizziness: N Needs help standing or walking: Y Fallen in the last 3 months: N Fall risk comments: 6. Patient on Blood Thinner: None 7. History of Hypertension: N 8. Opioid Therapy greater than 6 weeks: Y Opiate Contract Signed: 01/19/16 9. Risk Assessment Tool Provided: O/LOW 10. Functional Assessment Tool: 11. Recreational Drug Use: Never Drug Type: Tobacco Use: Never Smoker Tobacco Type: Amount or Packs/day: How Many Years: Alcohol Use: No Frequency: Quant:
== END | disposition home or self-care (01) ==
LOC: PAIN 12:08
PROVIDERS: ATTEND Anesthesiology Pain Medicine
DX: Z45.1 Encounter for adjustment and management of infusion pump (principal); G80.0 Spastic quadriplegic cerebral palsy; G89.29 Other chronic pain; Z98.890 Other specified postprocedural states; Z79.899 Other long term (current) drug therapy; Z87.891 Personal history of nicotine dependence

== ENCOUNTER → 2021-07-27 | Outpatient (CLI) | payer OTHER ==
[2021-07-27 11:37] VITALS: BP 98/63
--- NOTE | 2021-07-27 11:50 | NUR ---
Pain Clinic Assessment: 1. History of Osteoarthritis: DENIES History of Rheumatoid Arthritis: DENIES 2. Height: ft. in. cm. Weight: lb. oz. kg. Patient's BMI: 3. Vital Signs: BP: 98/63 Pulse: 52 Resp: 16 Temp: 02 Sat: 100 ECG Mon: 4. Pain Intensity: 8 5. Fall Risk: Dizziness: N Needs help standing or walking: Y Fallen in the last 3 months: N Fall risk comments: 6. Patient on Blood Thinner: None 7. History of Hypertension: N 8. Opioid Therapy greater than 6 weeks: Y Opiate Contract Signed: 01/19/16 9. Risk Assessment Tool Provided: O/LOW 10. Functional Assessment Tool: 11. Recreational Drug Use: Never Drug Type: Tobacco Use: Never Smoker Tobacco Type: Amount or Packs/day: How Many Years: Alcohol Use: No Frequency: Quant:
== END | disposition home or self-care (01) ==
LOC: PAIN 10:05
PROVIDERS: ATTEND Anesthesiology Pain Medicine
DX: Z45.1 Encounter for adjustment and management of infusion pump (principal); G80.0 Spastic quadriplegic cerebral palsy; G89.29 Other chronic pain; Z98.890 Other specified postprocedural states; Z79.899 Other long term (current) drug therapy; Z79.891 Long term (current) use of opiate analgesic